=== PATIENT | female | born 1970 | race Caucasian/White ===

== ENCOUNTER 2019-08-18 07:27 | Day surgery (SDC) | payer BC ==
[~2019-08-18 07:27] MED LIST: Lactated Ringers 1,000 ML IV ONE; Lactated Ringers 1,000 ML IV SCH; Levofloxacin 500MG/100ML D5W 500 MG/100 ML BAG IV SCH
[2019-08-18] MEDS ORDERED: CLINDAMYCIN-D5W 900 MG/50 ML*** 900 MG/50 ML BAG IV SCH (07:30)
[2019-08-18] MEDS ORDERED: Sensorcaine 0.25% 10 ML ONE (08:00)
[2019-08-18] MEDS ORDERED: Lactated Ringers 1,000 ML IV ONE (08:00)
[2019-08-18] MEDS ORDERED: Levofloxacin 500MG/100ML D5W 500 MG/100 ML BAG IV ONE (08:14)
[2019-08-18] MEDS ORDERED: CLINDAMYCIN-D5W 900 MG/50 ML*** 900 MG/50 ML BAG IV ONE (08:14)
--- NOTE | 2019-08-18 08:33 | HP ---
DATE OF SURGERY: 08/18/2019 HISTORY OF PRESENT ILLNESS: The patient is a 49 year-old with increasing epigastric pain, felt to have chronic cholecystitis by Dr. Ivey. It was felt given her increasing symptoms and increasing pain and she had acute exacerbation of chronic cholecystitis. She additionally had duodenal lesion biopsied benign but felt the need for submucosal dissection, surgical removal of the first portion of the duodenum lesion. PAST MEDICAL HISTORY: Hypertension, reflux. PAST SURGICAL HISTORY: Appendectomy. T&A. Hysterectomy. She had endoscopy in the past. MEDICATIONS: Enalapril, omeprazole, citalopram. ALLERGIES: PENICILLIN. CODEINE. FAMILY HISTORY: Hypertension, diabetes as well as cancer in the family. SOCIAL HISTORY: No smoking or alcohol abuse. REVIEW OF SYSTEMS: Fourteen systems reviewed. No chest pain or palpitations other systems negative or noncontributory as above and per preadmission questionnaire. PHYSICAL EXAMINATION: GENERAL: No acute distress. HEENT: Sclerae nonicteric. NECK: No JVD. CHEST: Equal excursion, nonlabored breathing. CVS: Regular rate and rhythm. ABDOMEN: Soft. Tenderness epigastrium. EXTREMITIES: No cyanosis. NEURO: Alert, oriented, moving extremities grossly symmetrically. IMPRESSION: Increasing epigastric pain, increasing symptoms, given her thick-walled gallbladder and Dr. Ivey felt she had cholecystitis, I feel she had acute exacerbation of chronic cholecystitis and her symptoms are increasing, I feel she would benefit from cholecystectomy sooner than later. Additionally she was discussed the options of rather than proceeding with open laparotomy procedure, the patient and felt it would be best as it was felt the duodenal lesion was not causing her symptoms that she should follow up with Gastroenterology or Dr. Ivey to do this specific procedure according to his office for endoscopic submucosal dissection, opinion and referral. Given her increasing epigastric pain, acute exacerbation of chronic cholecystitis, it was felt she would benefit from cholecystectomy sooner than later. Risks and benefits explained in detail including but not limited to bleeding or infection, risk of trocar injury or hernia, risk of bile, bladder, blood vessel injury, risk of bile leak, bile duct injury, retained stone or sludge possibly requiring further procedure either open or ERCP, general risk of anesthesia, deep venous thrombosis, pulmonary embolism, pneumonia, perioperative risk of aches, pains, bloating, constipation and/or loose stools possibly even chronic in nature. General risk of anesthesia, deep venous thrombosis, pulmonary embolism or pneumonia, possibility of no improvement in her symptoms possibly need an open procedure. If we have to proceed with open procedure would consider feasibility whether excision of the duodenal lesion or not. She understands as well as general risk of anesthesia, deep venous thrombosis, pulmonary embolism, pneumonia, risk of aches and pains possibly chronic in nature, risk of loose stools possible chronic or constipation, general risk of anesthesia, deep venous thrombosis, pulmonary embolism, pneumonia but not limited to. She agrees to the planned procedure, will proceed with laparoscopic cholecystectomy with possible open. She also understands there is possibility of other etiologies of increasing epigastric aches and pains.
[2019-08-18] MEDS ORDERED: Compazine 10 MG/2 ML ONE (09:32)
[2019-08-18] MEDS ORDERED: SUBLIMAZE 100 MCG/2 ML ONE ×2 (09:36→09:47)
[2019-08-18] MEDS ORDERED: DILAUDID 2 MG INJECTION ONE (09:40)
[2019-08-18] MEDS ORDERED: Zemuron 100 MG/10 ML ONE (09:47)
[2019-08-18] MEDS ORDERED: Quelicin Fliptop 200 MG/10 ML ONE (09:47)
[2019-08-18] MEDS ORDERED: DIPRIVAN 200 MG/20 ML IV ONE (09:47)
[2019-08-18] MEDS ORDERED: Zofran 4 MG/2 ML VIAL ONE (10:23)
[2019-08-18] MEDS ORDERED: ATROPINE SULFATE 1MG ONE (10:23)
[2019-08-18] MEDS ORDERED: TORAdol 30 mg Injection ONE (10:23)
[2019-08-18] MEDS ORDERED: BRIDION 200MG/2ML IV ONE (10:23)
[2019-08-18] MEDS ORDERED: Ephedrine Sulfate 50 MG/ML ONE (10:23)
[2019-08-18] MEDS ORDERED: Decadron 4 MG INJ ONE (10:23)
[2019-08-18] MEDS ORDERED: BREVIBLOC 100 MG/10 ML IV ONE (10:28)
--- NOTE | 2019-08-18 10:53 | OP ---
SURGERY DATE/TIME: 08/18/2019 3645 PREOPERATIVE DIAGNOSIS: Increase in epigastric pain associated with some nausea increasing symptoms, evidence of chronic cholecystitis on endoscopic ultrasound. It was felt she had acute exacerbation chronic cholecystitis. Given her increasing symptoms that are affecting her daily living it is felt she warranted cholecystectomy. POSTOPERATIVE DIAGNOSIS: Increase in epigastric pain associated with some nausea increasing symptoms, evidence of chronic cholecystitis on endoscopic ultrasound. It was felt she had acute exacerbation chronic cholecystitis. Given her increasing symptoms that are affecting her daily living it is felt she warranted cholecystectomy. PROCEDURE: Laparoscopic cholecystectomy. SURGEON: Dr. Magno Masters. ANESTHESIA: General. ESTIMATED BLOOD LOSS: Minimal. INDICATIONS: As noted above. Risks and benefits explained in detail but not limited to and consent obtained. DESCRIPTION OF PROCEDURE AND FINDINGS: The patient was taken to the operating room. General anesthesia induced. Abdomen prepped and draped in the usual sterile fashion. After official time out and no disagreement with planned procedure, a transverse incision made at the supraumbilical area. Fascia grasped and pulled upward. Veress needle inserted and tested with saline. Pneumoperitoneum accomplished insufflating opening pressure of 0-15. An 11 mm bladeless port and camera inserted without difficulty followed by two - 5 mm right upper quadrant ports and a 5 mm epigastric port. She had extensive omental adhesions stuck over the top of the gallbladder, extensive chronic cholecystitis acute exacerbation. This took some time. The omentum was carefully freed from top edge of the liver allowing access to the gallbladder. The fibrofatty adhesions were taken down posterior, lateral to anterior fashion. Slowly and carefully cystic duct and infundibular junction slowly and carefully well skeletonized until the critical view obtained both anteriorly and posteriorly. Once this was accomplished the cystic duct and cystic artery clipped x3 and divided in the usual fashion. The gallbladder slowly and carefully dissected free from its dense attachment to liver bed, staying directly on the gallbladder wall clipping additional oozing side branches off the cystic artery directly on the gallbladder wall as necessary. It should be noted that the grasper tore a small little pinhole in the gallbladder spilling a small amount of bile. There was no evidence of any obvious stone or sludge spillage this is suction irrigated as clear as possible. The gallbladder is continued to be dissected free. Just prior to releasing from final attachments to the anterior edge of the liver, the liver bed re-inspected. Clips noted to be in place in cystic duct and cystic artery stump. No signs of any active bleeding or bile leakage. It was felt there was no benefit in drain placement. Gallbladder released from final attachments to anterior edge of the liver pulled up and out the supraumbilical port site and passed off. Copious amount of irrigation accomplished lateral to the liver and subhepatic space irrigating until clear. Liver bed re-inspected. Clips noted in place cystic duct or cystic artery stump. No signs of any active bleeding or bile leakage from the liver bed itself. It was felt there was no benefit from drain placement at this point. The fascial defect closed with puncture closure device with #1 Vicryl at the 1011 site. Pneumoperitoneum decompressed. The wound irrigated out. Skin incision closed with 4-0 Vicryl. Steri-Strips and sterile dressing applied. 0.25% Marcaine local injected along the skin incision fascial defect. The patient tolerated the procedure well. There were no immediate complications. There was no family available to discuss the findings with at this time. If there are any questions I could be paged. Otherwise, I will see her back in the office in a week or so.
[2019-08-18 10:56] VITALS: O2SAT 94
[2019-08-18 11:14] VITALS: BP 123/71; PULSE 112
== END 2019-08-18 11:20 | disposition home or self-care (01) ==
LOC: SDC 07:27
PROVIDERS: ATTEND Surgery
DX: K81.1 Chronic cholecystitis (principal); I10 Essential (primary) hypertension; K21.9 Gastro-esophageal reflux disease without esophagitis; Z79.899 Other long term (current) drug therapy
CPT/HCPCS: J0330; J0461; J1100; J1170; J1885; J1956; J2405; J2704; J3010